=== PATIENT | female | born 1935 | race Caucasian/White ===

== ENCOUNTER → 2019-04-06 09:28 | Outpatient (BNVA) | payer MEDICARE, MEDICAID, SELFPAY | PROVIDERS: Family Provider Internal Medicine Pulmonary Disease; PCP Family Medicine; Visit Provider Anesthesiology Pain Medicine | DX: M54.5 Low back pain (principal); M79.18 Myalgia, other site; M25.551 Pain in right hip; M25.552 Pain in left hip; Z79.891 Long term (current) use of opiate analgesic | CPT/HCPCS: 20553; 99999; J1030; J3490 ==

== ENCOUNTER → 2019-04-20 12:49 | Outpatient (BNVA) | payer MEDICARE, MEDICAID, SELFPAY | PROVIDERS: Family Provider Internal Medicine Pulmonary Disease; PCP Family Medicine; Visit Provider Anesthesiology Pain Medicine | DX: G89.29 Other chronic pain (principal); M25.552 Pain in left hip; M16.10 Unilateral primary osteoarthritis, unspecified hip | CPT/HCPCS: 20610; 77003; J1030; J2001; J3490 ==

== ENCOUNTER → 2019-05-05 09:39 | Outpatient (BNVA) | payer MEDICARE, MEDICAID, SELFPAY | PROVIDERS: Family Provider Internal Medicine Pulmonary Disease; PCP Family Medicine; Visit Provider Anesthesiology Pain Medicine | DX: M25.552 Pain in left hip (principal); M54.5 Low back pain; Z79.891 Long term (current) use of opiate analgesic | CPT/HCPCS: 99214 ==

== ENCOUNTER 2019-08-12 07:14 | Emergency (ER) | payer MEDICARE, MEDICAID, SELFPAY ==
[2019-08-12] VITALS (7 sets, daily range): BP systolic 129–159; BP diastolic 46–70; PULSE 64–84; RESP 17–18; TEMP 36.7; O2SAT 95–100; BMI 39.4
--- NOTE | 2019-08-12 07:34 | W.ED.ABDPA2 ---
HPI - Abdominal Pain General: Chief Complaint: Abdominal Pain Stated Complaint: ABDOMINAL PAIN/ CRAMPING/ DIARRHEA Time Seen by Provider: 08/12/19 07:29 History of Present Illness: HPI narrative: 84-year-old female comes in complaining of abdominal pain. She denies any hematemesis coffee-ground emesis. She has not had any fevers just generalized cramping and discomfort over the last couple of days. She has had some black stools but she was recently taking some Pepto-Bismol and the black stools have been intermittent in nature. She is not had any grossly bloody stools at all. MD elicited complaint: abdominal pain Pertinent past history: gastritis and other (History of gastric ulcer) Onset (ago): day(s) (3) Pain Consistency: intermittent Location: Epigastric Severity: severe Quality: stabbing and sharp Radiation: none Migration to: no migration Exacerbating factors: eating Relieving factors: nothing Associated Symptoms: Reports anorexia, belching, bloating, change in bowel habits, change in stool character, GI cramping, dyspepsia, fever(s), melena, nausea and poor appetite; Denies coffee ground emesis, diarrhea, dysuria, hematochezia, hematuria and vomiting Review of Systems Const: Reports: fever(s) ENMT: Denies: throat pain, ear or mastoid pain, nasal discharge or nasal congestion Card: Denies: chest pain, edema, dyspnea on exertion or orthopnea Resp: Denies: dyspnea, productive cough or non-productive cough GI: Reports: nausea, bloating, GI cramping, belching, change in bowel habits, change in stool character and melena; Denies: vomiting, coffee ground emesis, diarrhea or hematochezia : Denies: dysuria or hematuria Skin/Breast: Denies: rash or pruritus PFSH ED PFSH: Medical History Chronic hip pain Chronic obstructive pulmonary disease, unspecified Hypertension Long-term current use of opiate analgesic Lumbar spondylosis Pain management contract signed SI joint arthritis Surgical History Hx of hysterectomy Hx of total knee replacement LEFT Hx of tubal ligation Family History Mother Hypertension Sister Cancer BREAST CANCER Brother Cancer Seizure disorder Other Diabetes Social History Smoking and tobacco status: former smoker Alcohol intake: never Caregiver/support person: Yes Lives independently: Yes Household members: children History of recent travel: No Physical Exam Const: COMMON NORMALS: no acute distress GENERAL APPEARANCE: cooperative and comfortable ORIENTATION/CONSCIOUSNESS: Yes awake, Yes oriented to person, Yes oriented to place and Yes oriented to time HENMT: COMMON NORMALS: normocephalic, atraumatic, hearing grossly normal bilaterally, external ears normal, EAC's normal, TM's normal bilaterally, Normal nasal mucous membranes and turbinates present, moist oral mucous membranes and oropharynx normal HEAD & SCALP: normocephalic and atraumatic NOSE: Normal nasal mucous membranes and turbinates present EXTERNAL EAR: Yes external ears normal EXTERNAL AUDITORY CANAL: EAC's normal TYMPANIC MEMBRANE: TM's normal bilaterally Eye: COMMON NORMALS: Equal, round and reactive pupils present, EOMs intact bilaterally, conjunctivae normal and no scleral icterus CONJUNCTIVA: Yes conjunctivae normal PUPIL: Yes Equal, round and reactive pupils present Neck/C-Spine: COMMON NORMALS: full ROM, no lymphadenopathy, supple and no JVD Lymph: LYMPHATIC: no lymphadenopathy noted and no lymphedema noted Resp: COMMON NORMALS: normal respiratory effort, No retractions, No use of accessory muscles and clear to auscultation bilaterally AUSCULTATION: clear to auscultation bilaterally Cardio: COMMON NORMALS: no JVD, regular rate, regular rhythm and No murmurs present (Cardio) RATE: regular rate RHYTHM: regular rhythm GI: COMMON NORMALS: Soft to palpation and No hepatosplenomegaly present AUSCULTATION: Yes Hypoactive bowel sounds present PALPATION: Yes Soft to palpation, Yes Tenderness to palpation present (GI) (Epigastric), No Guarding due to palpation present (GI) and Yes No hepatosplenomegaly present OTHER: Rectal exam done negative for blood on Hemoccult. Extremity: COMMON NORMALS: normal to inspection, capillary refill normal, no clubbing, cyanosis or edema, no calf tenderness and no pedal edema Neuro: SENSORIUM/ORIENTATION: Yes oriented to person, Yes oriented to place and Yes oriented to time Skin: COMMON NORMALS: no rashes or lesions noted GENERAL SKIN EXAM: no rashes or lesions noted Course Vital Signs: Vital signs: Vital Signs Temperature 98.0 F 08/12/19 07:16 Pulse Rate 83 08/12/19 12:57 Respiratory Rate 17 08/12/19 12:57 Blood Pressure 157/68 08/12/19 12:57 Pulse Oximetry 96 08/12/19 12:57 MDM - Abdominal Pain MDM Narrative: Medical decision making narrative: Feeling better after fluids will go ahead and start her on some Zofran PRN have her follow-up with her primary care doctor return if is any worsening problems. Lab Data: Labs: Lab Results 08/12/19 08/12/19 08/12/19 Range/Units 08:00 08:00 08:00 WBC 5.0 (4.0-10.0) 10^3/ uL RBC 4.38 (4.1-5.3) 10^6/u L Hgb 13.0 (11.5-15.3) g/dL Hct 40.5 (37.0-47.0) % MCV 92.5 (81-99) fL MCH 29.7 (28.0-34.0) pg MCHC 32.1 (30.0-36.0) g/dL RDW 13.5 (12.1-15.1) % Plt Count 304 (130-400) 10^3/c mm MPV 9.6 (7.4-10.4) fL Neut % (Auto) 73.5 % Lymph % (Auto) 13.7 % [place] % (Auto) 11.4 % Eos % (Auto) 0.8 % Baso % (Auto) 0.2 % Neut # (Auto) 3.7 (1.8-7.7) 10^3/u L Lymph # (Auto) 0.7 L (0.8-4.8) 10^3/u L [place] # (Auto) 0.6 (0.2-0.9) 10^3/u L Eos # (Auto) 0.0 (0.0-0.8) 10^3/u L Baso # (Auto) 0.0 (0.0-0.1) 10^3/u L Nucleated RBC % (a uto) 0 % Nucleated RBCs # 0.0 /100WBC Sodium 137 (136-145) mmol/L Potassium 3.7 (3.5-5.1) mmol/L Chloride 101 (98-107) mmol/L Carbon Dioxide 22 (22-29) mmol/L Anion Gap 17.7 (5-19) BUN 27 H (8-23) mg/dL Creatinine 1.1 H (0.5-0.9) mg/dL Glucose 115 (65-115) mg/dL Calculated Osmolal ity 282 L (285-295) mOsm/k g Lactate 2.1 (0.5-2.2) mmol/L Calcium 9.3 (8.5-10.5) mg/dL Total Bilirubin 0.5 (0.15-1.2) mg/dL AST 14 (0-32) U/L ALT 8 (0-33) U/L Alkaline Phosphata se 78 (35-105) IU/L Troponin T Baselin e (0-10) ng/L Troponin T 120 Min [place] (0-10) ng/L Delta Troponin T (0-10) ABS# Total Protein 6.2 L (6.6-8.7) g/dL Albumin 4.0 (3.5-5.2) g/dL Globulin 2.2 (1.3-4.6) g/dL Lipase 36 (13-60) U/L Urine Color (Yellow) Urine Appearance (CLEAR) Urine pH (5-7) Ur Specific Gravit y (1.005-1.030) Urine Protein (Negative) Urine Glucose (UA) (Normal) Urine Ketones (Negative) Urine Blood (Negative) Urine Nitrate (Negative) Urine Bilirubin (NEGATIVE) Urine Urobilinogen (Negative) mg/dL Ur Leukocyte Sarah ase (Negative) Urine RBC (0-2) /hpf Urine WBC (0-5) /hpf Ur Squamous Epith Cells (0-5) Urine Bacteria (NONE) Urine Mucus 08/12/19 08/12/19 08/12/19 Range/Units 08:00 10:28 11:30 WBC (4.0-10.0) 10^3/ uL RBC (4.1-5.3) 10^6/u L Hgb (11.5-15.3) g/dL Hct (37.0-47.0) % MCV (81-99) fL MCH (28.0-34.0) pg MCHC (30.0-36.0) g/dL RDW (12.1-15.1) % Plt Count (130-400) 10^3/c mm MPV (7.4-10.4) fL Neut % (Auto) % Lymph % (Auto) % [place] % (Auto) % Eos % (Auto) % Baso % (Auto) % Neut # (Auto) (1.8-7.7) 10^3/u L Lymph # (Auto) (0.8-4.8) 10^3/u L [place] # (Auto) (0.2-0.9) 10^3/u L Eos # (Auto) (0.0-0.8) 10^3/u L Baso # (Auto) (0.0-0.1) 10^3/u L Nucleated RBC % (a uto) % Nucleated RBCs # /100WBC Sodium (136-145) mmol/L Potassium (3.5-5.1) mmol/L Chloride (98-107) mmol/L Carbon Dioxide (22-29) mmol/L Anion Gap (5-19) BUN (8-23) mg/dL Creatinine (0.5-0.9) mg/dL Glucose (65-115) mg/dL Calculated Osmolal ity (285-295) mOsm/k g Lactate (0.5-2.2) mmol/L Calcium (8.5-10.5) mg/dL Total Bilirubin (0.15-1.2) mg/dL AST (0-32) U/L ALT (0-33) U/L Alkaline Phosphata se (35-105) IU/L Troponin T Baselin e 12 H (0-10) ng/L Troponin T 120 Min [place] 10.76 H (0-10) ng/L Delta Troponin T -1.24 L (0-10) ABS# Total Protein (6.6-8.7) g/dL Albumin (3.5-5.2) g/dL Globulin (1.3-4.6) g/dL Lipase (13-60) U/L Urine Color Yellow (Yellow) Urine Appearance Sl hazy (CLEAR) Urine pH 7.0 (5-7) Ur Specific Gravit y 1.010 (1.005-1.030) Urine Protein Trace (Negative) Urine Glucose (UA) Norm (Normal) Urine Ketones Negative (Negative) Urine Blood Trace H (Negative) Urine Nitrate Negative (Negative) Urine Bilirubin Neg (NEGATIVE) Urine Urobilinogen Norm (Negative) mg/dL Ur Leukocyte Sarah ase Negative (Negative) Urine RBC None (0-2) /hpf Urine WBC None (0-5) /hpf Ur Squamous Epith Cells 25-40 H (0-5) Urine Bacteria 1+ H (NONE) Urine Mucus Trace Discharge Plan Discharge Patient Disposition: Home, Self-Care Clinical Impression: Nausea & vomiting, Abdominal pain Condition: Stable Prescriptions: New Zofran 4 mg tablet 4 mg PO Q6H PRN (Reason: nausea and vomiting) Qty: 25 RF: 0 No Action simvastatin 40 mg tablet 40 mg PO DAILY RF: 0 lisinopril 5 mg tablet 5 mg PO DAILY RF: 0 omeprazole 40 mg capsule,delayed release(DR/EC) 40 mg PO DAILY RF: 0 tramadol 50 mg tablet 50 mg PO DAILY PRN (Reason: Pain) RF: 0 albuterol sulfate [Ventolin HFA] 90 mcg/actuation HFA aerosol inhaler 2 puff INHALATION Q4H PRN (Reason: Shortness Of Breath) RF: 0 tizanidine 2 mg tablet 2 mg PO BID MDD 2 PRN (Reason: muscle spasticity) Qty: 60 RF: 0 Tylenol Extra Strength 500 mg Tablet 1,000 mg PO PRN RF: 0 Discharge Orders: Discharge Order (Routine); Ordered 08/12/19 Ordered By: Pascual Gregg Referrals: Tu Puentes MD [Family Provider] - Shari Erazo MD [Primary Care Provider] - Discharge Diet: Usual diet Discharge Activity: Increase activity as tolerated Patient Instructions: Clear Liquid Diet (ED), Abdominal Pain (ED) Activity Restrictions/Additional Instructions: Follow-up with your primary care doctor in 2 to 3 days return if you have worsening problems clear liquid diet for the next 24 hours Discharge Date/Time: 08/12/19 12:59 Coding Level of Care Code ED General Scrap Worker for Chg Fwd Exam Comprehensive
--- NOTE | 2019-08-12 07:49 | ECG_ITS ---
[facility] Test Date: 2019-08-12 Pat Name: Brandee Lal Department: Room: Gender: Female Website Developer: : 1935 Requested By: Pascual Fox Order Number: [id number] Aviva MD: Ovi Jolley M.D. Measurements Intervals [place] Rate: 75 P: -76 MS: 147 QRS: -79 QRSD: 131 T: 60 QT: 423 QTc: 474 Interpretive Statements ECTOPIC ATRIAL RHYTHM RIGHT BUNDLE BRANCH BLOCK [120+ ms QRS DURATION, UPRIGHT V1, 40+ ms S IN I/aVL/V4/V5/V6] ANTERIOR MYOCARDIAL INFARCTION [40+ ms Q WAVE AND/OR ST/T ABNORMALITY IN V3/V4], OF INDETERMINATE AGE INFERIOR MYOCARDIAL INFARCTION [40+ ms Q WAVE AND/OR ST/T ABNORMALITY IN II/aVF], PROBABLY OLD ST DEPRESSION, CONSIDER SUBENDOCARDIAL INJURY [0.1+ mV ST DEPRESSION] No previous ECG available for comparison Electronically Signed On 08-12-2019 13:07:00 CDT by Ovi Jolley M.D. [id number]
--- NOTE | 2019-08-12 07:50 | CT_ITS ---
WS: [id number] CT abdomen pelvis w con* [id number] REASON FOR EXAM: abd pain IV CONTRAST ADMINISTERED: Omnipaque 300, 95 mL. TOTAL EXAM DLP: 1847.[address] scans at [facility] use at least one of these dose optimization techniques: automat ed exposure control; mA and/or kV adjustment per patient size (includes targeted exams where dose is matched to clinical indication); or iterative reconstruction. FINDINGS: Lower lungs and mediastinum are normal. The liver showed normal appearance no infiltrating changes. The gallbladder was normal no stones are seen. The pancreas head, body, tail were normal. The spleen and stomach were normal. The adrenal glands were both normal. Both kidneys were normal no hydronephrosis a small cyst is seen in the left lower kidney measured 7.5 3 mm. No stones in either kidney are seen in the ureters were normal. The ascending colon show no gross abnormalities. Appendix was normal. The small bowel patterns show no thickened cortes. The descending colon show no extensive diverticular disease there is isolated diverticular disease in the sigmoid colon area. No diverticulitis is seen. The urinary bladder was normal. The uterus is not seen. There were no hernias noted in either the inguinal area are umbilical area. There is heavy arteriosclerotic changes of the vasculature. There was no free air in the diaphragmatic area. CT/CT abdomen pelvis w con* [id number] IMPRESSION: Localized diverticulosis in the pelvis.
[2019-08-12] MEDS: morphine 4 mg/mL SDV 1 mL IVP (08:17)
[2019-08-12] MEDS: ondansetron 2 mg/ML SDV 2 mL 4 MG IVP (08:17)
[2019-08-12] MEDS: pantoprazole 40 mg SDV IVP (08:18)
[2019-08-12] MEDS: sodium chloride 0.9% 1,000 ML 999 ML IV (08:18)
[2019-08-12] MEDS: iodixanol 320 mg/mL 100mL Btl IV (08:19)
[2019-08-12 08:24] LABS: Basophils % 0.2 %; Eosinophils % 0.8 %; Hematocrit 40.5 % (37.0-47.0); Lymphocytes # 0.7 10^3/uL (0.8-4.8); Lymphocytes % 13.7 %; Mean Corpuscular HGB Conc 32.1 g/dL (30.0-36.0); Mean Corpuscular Hemoglobin 29.7 pg (28.0-34.0); Mean Corpuscular Volume 92.5 fL (81-99); Mean Platelet Volume 9.6 fL (7.4-10.4); Monocytes # 0.6 10^3/uL (0.2-0.9); Monocytes % 11.4 %; Neutrophils # 3.7 10^3/uL (1.8-7.7); Neutrophils % 73.5 %; Nucleated Red Blood Cells % 0 %; Platelet Count 304 10^3/cmm (130-400); Red Blood Count 4.38 10^6/uL (4.1-5.3); Red Cell Distribution Width 13.5 % (12.1-15.1)
[2019-08-12 08:37] LABS: Lactate (Lactic Acid level) 2.1 mmol/L (0.5-2.2)
[2019-08-12 08:39] LABS: Alanine Aminotransferase 8 U/L (0-33); Alkaline Phosphatase 78 IU/L (35-105); Anion Gap 17.7 (5-19); Aspartate Amino Transferase 14 U/L (0-32); Blood Urea Nitrogen 27 mg/dL (8-23); Calcium 9.3 mg/dL (8.5-10.5); Carbon Dioxide 22 mmol/L (22-29); Chloride 101 mmol/L (98-107); Globulin 2.2 g/dL (1.3-4.6); Glucose 115 mg/dL (65-115); Lipase 36 U/L (13-60); Osmolality Calculated 282 mOsm/kg (285-295); Potassium 3.7 mmol/L (3.5-5.1); Sodium 137 mmol/L (136-145); Total Bilirubin 0.5 mg/dL (0.15-1.2); Total Protein 6.2 g/dL (6.6-8.7); Troponin(5th) Baseline 12 ng/L (0-10)
--- NOTE | 2019-08-12 09:49 | ECG_ITS ---
[facility] ED Test Date: 2019-08-12 Pat Name: Brandee Lal Department: Room: Gender: Female Editing Clerk: : 1935 Requested By: Pascual Fox Order Number: [id number] Aviva MD: Ovi Jolley M.D. Measurements Intervals [place] Rate: 69 P: -14 [place]: 133 QRS: -89 QRSD: 164 T: 18 QT: 461 QTc: 494 Interpretive Statements SINUS RHYTHM RIGHT BUNDLE BRANCH BLOCK [120+ ms QRS DURATION, UPRIGHT V1, 40+ ms S IN I/aVL/V4/V5/V6] LEFT ANTERIOR FASCICULAR BLOCK [QRS AXIS <= -45, QR IN I, RS IN II] POSSIBLE ANTERIOR MYOCARDIAL INFARCTION [30 ms Q WAVE IN V3/V4, OR R < 0.2 mV IN V4], OF INDETERMINATE AGE Compared to ECG 08/12/2019 08:28:40 Left anterior fascicular block now present Ectopic atrial rhythm no longer present ST (T wave) deviation no longer present Myocardial infarct finding still present Electronically Signed On 08-12-2019 13:08:19 CDT by Ovi Jolley M.D. [id number]
[2019-08-12 10:57] LABS: Troponin 5 2HR 10.76 ng/L (0-10)
[2019-08-12 10:58] LABS: Troponin 5 2HR Delta -1.24 ABS# (0-10)
[2019-08-12 12:05] LABS: Add Urine Culture? No; Add Urine Microscopic? YES; Bacteria Urine 1+; Bilirubin Urine Neg (NEGATIVE); Blood Urine Trace (Negative); Glucose Urine UA Norm (Normal); Ketones Urine Negative (Negative); Leukocyte Esterase Urine Negative (Negative); Mucus Urine TRACE; Nitrate Urine Negative (Negative); Protein Urine Trace (Negative); Squamous Epithelial Cell Urine 25-40 (0-5); Urine Appearance SL Hazy (CLEAR); Urine Color Yellow (Yellow); Urobilinogen Urine Norm (Negative)
== END 2019-08-12 12:59 | disposition home or self-care (01) ==
PROVIDERS: Emergency Provider Family Medicine; Family Provider Internal Medicine Pulmonary Disease; PCP Family Medicine
DX: R11.2 Nausea with vomiting, unspecified (principal); R10.9 Unspecified abdominal pain; J44.9 Chronic obstructive pulmonary disease, unspecified; I10 Essential (primary) hypertension; Z87.891 Personal history of nicotine dependence
CPT/HCPCS: 12345; 36415; 74177; 80053; 81001; 83605; 83690; 84484; 85025; 87040; 87205; 93005; 96361; 96374; 96375; 99283; 99284; C9113; J2270; J2405; J7030; Q9967

== ENCOUNTER 2021-02-12 08:44 | Emergency (ER) | payer MEDICARE, MEDICAID, SELFPAY ==
[2021-02-12 08:55] VITALS: BP 188/73; PULSE 80; RESP 20; TEMP 37.1; O2SAT 90; BMI 41.9
--- NOTE | 2021-02-12 09:13 | ECG_ITS ---
[facility] Test Date: 2021-02-12 Pat Name: Brandee Lla Department: Room: Gender: Female Spanish Medical Interpreter: : 1935 Requested By: Pascual Fox Order Number: [id number] Aviva MD: Bertha Gonzalez M.D. Measurements Intervals [place] Rate: 73 P: 55 [place]: 162 QRS: -76 QRSD: 161 T: 32 QT: 423 QTc: 468 Interpretive Statements SINUS RHYTHM WITH OCCASIONAL VENTRICULAR PREMATURE COMPLEXES POSSIBLE LEFT ATRIAL ENLARGEMENT [-0.1mV P-WAVE IN V1/V2] RIGHT BUNDLE BRANCH BLOCK [120+ ms QRS DURATION, UPRIGHT V1, 40+ ms S IN I/aVL/V4/V5/V6] LEFT ANTERIOR FASCICULAR BLOCK [QRS AXIS <= -45, QR IN I, RS IN II] POSSIBLE ANTERIOR MYOCARDIAL INFARCTION , OF INDETERMINATE AGE [30 ms Q WAVE IN V3/V4, OR R < 0.2 mV IN V4] Compared to ECG 08/12/2019 10:10:17 Ventricular premature complex(es) now present Myocardial infarct finding still present Electronically Signed On 02-12-2021 22:08:37 ELECTRICITY TRADING ANALYST by Bertha Gonzalez M.D. [email or web address] [email or web address]/store/NU/[id number] cb
--- NOTE | 2021-02-12 09:13 | XR_ITS ---
WS: [id number] Exam: XR chest 1V portable [id number] Date/Time of Exam: 02/12/2021 9:15 AM Reason For Exam: dyspnea/cough No priors. There is cardiac enlargement. The lungs are clear. No pneumothorax is seen. Elevated elevated left di aphragm. Eventration of the right diaphragm. The mediastinum is not widened. Moderately advanced DJD of both shoulders. XR/XR chest 1V portable [id number] IMPRESSION: 1. Mild cardiac enlargement. 2. No acute infiltrate identified. Other nonemergent findings.
--- NOTE | 2021-02-12 09:14 | W.ED.SOB ---
HPI - SOB/Dyspnea General: Chief Complaint: Shortness of Breath/Dyspnea Stated Complaint: COPD, COUGHING, SORE THROAT, DIFF BREATHING Time Seen by Provider: 02/12/21 08:50 History of Present Illness: HPI Narrative: 85-year-old female presents emergency room complaining of cough shortness of breath and sore throat that began 2 to 3 days ago progressively worsening. She denies any diarrhea. She not had any anosmia. Denies fever. Has had moderately increasing productive cough or purulent sputum. She has felt more short of breath particularly with exertion. She has a known history of COPD and is not chronically on any oxygen. MD elicited complaint: shortness of breath and cough Pertinent past history: COPD Onset (ago): day(s) (3) Timing: constant Severity: mild Exacerbating factors: exertion and coughing Relieving factors: rest Known history of: COPD Associated symptoms: Deny abdominal pain, chest congestion, chest pain, cough, diaphoresis, dizziness, extremity pain, fever(s), hemoptysis, lightheadedness, myalgias, nausea, orthopnea, palpitations, paresthesias, polydipsia, polyuria, rash, sense of impending doom, syncope or vomiting Treatment prior to arrival: none Review of Systems Const: Denies: fever(s) or diaphoresis ENMT: Denies: throat pain, ear or mastoid pain, nasal discharge or nasal congestion Card: Denies: chest pain, palpitations, lightheadedness, syncope or orthopnea Resp: Denies: hemoptysis or chest congestion GI: Denies: abdominal pain, nausea or vomiting : Denies: flank pain, difficulty voiding, dysuria, urinary frequency or urinary urgency Musc: Denies: extremity pain Skin/Breast: Denies: rash or pruritus Neuro: Denies: dizziness Endo: Denies: polyuria or polydipsia PFSH ED PFSH: Medical History (Updated 02/12/21 @ 12:57 by Pascual Gregg DO) Chronic hip pain Chronic obstructive pulmonary disease, unspecified Hypertension Long-term current use of opiate analgesic Lumbar spondylosis Pain management contract signed SI joint arthritis Surgical History Hx of hysterectomy Hx of total knee replacement LEFT Hx of tubal ligation Family History Mother Hypertension Sister Cancer BREAST CANCER Brother Cancer Seizure disorder Other Diabetes Social History Smoking and tobacco status: former smoker Alcohol intake: never Caregiver/support person: Yes Lives independently: Yes Household members: children History of recent travel: No Physical Exam Const: GENERAL APPEARANCE: cooperative and comfortable ORIENTATION/CONSCIOUSNESS: Yes awake, Yes oriented to person, Yes oriented to place and Yes oriented to time HENMT: COMMON NORMALS: normocephalic, atraumatic and hearing grossly normal bilaterally HEAD & SCALP: normocephalic and atraumatic Neck/C-Spine: COMMON NORMALS: no JVD Lymph: LYMPHATIC: no lymphadenopathy noted and no lymphedema noted Resp: COMMON NORMALS: normal respiratory effort AUSCULTATION: wheezes expiratory wheezes (Mild) Cardio: COMMON NORMALS: no JVD, regular rate, regular rhythm and No murmurs present (Cardio) RATE: regular rate RHYTHM: regular rhythm GI: COMMON NORMALS: Soft to palpation and No hepatosplenomegaly present AUSCULTATION: Yes normoactive bowel sounds PALPATION: Yes Soft to palpation, No Tenderness to palpation present (GI), No Guarding due to palpation present (GI) and Yes No hepatosplenomegaly present Extremity: COMMON NORMALS: normal to inspection, capillary refill normal, no clubbing, cyanosis or edema, no calf tenderness and no pedal edema Neuro: SENSORIUM/ORIENTATION: Yes oriented to person, Yes oriented to place and Yes oriented to time Skin: COMMON NORMALS: no rashes or lesions noted GENERAL SKIN EXAM: no rashes or lesions noted Course Vital Signs: Vital signs: Vital Signs Temperature 98.7 F 02/12/21 09:19 Pulse Rate 74 02/12/21 09:19 Respiratory Rate 18 02/12/21 09:19 Blood Pressure 188/76 02/12/21 09:19 Pulse Oximetry 98 02/12/21 09:19 MDM - SOB/Dyspnea Lab Data: Labs: Lab Results 02/12/21 02/12/21 02/12/21 09:02 09:02 09:05 WBC 11.0 10^3/uL H 10 ^3/uL (4.0-10.0) RBC 4.82 10^6/uL 10^6 /uL (4.1-5.3) Hgb 13.5 g/dL g/dL (11.5-15.3) Hct 41.7 % % (37.0-47.0) MCV 86.5 fl fl (81-99) MCH 28.0 pg pg (28.0-34.0) MCHC 32.4 g/dL g/dL (30.0-36.0) RDW 13.6 % % (12.1-15.1) Plt Count 294 10^3/cmm 10^3 /cmm (130-400) MPV 9.7 fL fL (7.4-10.4) Neut % (Auto) 89.9 % % Lymph % (Auto) 4.7 % % [place] % (Auto) 4.4 % % Eos % (Auto) 0.2 % % Baso % (Auto) 0.3 % % Neut # (Auto) 9.88 10^3/uL H 10 ^3/uL (1.8-7.7) Lymph # (Auto) 0.5 10^3/uL L 10^ 3/uL (0.8-4.8) [place] # (Auto) 0.5 10^3/uL 10^3/ uL (0.2-0.9) Eos # (Auto) 0.0 10^3/uL 10^3/ uL (0.0-0.8) Baso # (Auto) 0.0 10^3/uL 10^3/ uL (0.0-0.1) Nucleated RBC % (a uto) 0 % % Nucleated RBCs # 0.0 /100WBC /100W BC Specimen Type Sample Site ABG pH ABG pCO2 ABG pO2 ABG HCO3 ABG O2 Saturation ABG Base Excess [place] Test A-a O2 Gradient Hematocrit Hgb O2 Saturation Carboxyhemoglobin Methemoglobin Total Hemoglobin Ionized Calcium O2 Delivery Device O2 Liters/Min Cable Installer ID Sodium 135 mmol/L L mmol /L (136-145) Potassium 4.9 mmol/L mmol/L (3.5-5.1) Chloride 99 mmol/L mmol/L (98-107) Carbon Dioxide 22 mmol/L mmol/L (22-29) Anion Gap 18.9 (5-19) BUN 11 mg/dL mg/dL (8-23) Creatinine 0.9 mg/dL mg/dL (0.5-0.9) GFR Calculation Not Reportable Glucose 158 mg/dL H mg/dL (65-115) Calculated Osmolal ity 283 mOsm/kg L mOs m/kg (285-295) Calcium 8.8 mg/dL mg/dL (8.5-10.5) Total Bilirubin 0.5 mg/dL mg/dL (0.15-1.2) AST 13 U/L U/L (0-32) ALT 7 U/L U/L (0-33) Alkaline Phosphata se 87 IU/L IU/L (35-105) Total Protein 7.4 g/dL g/dL (6.6-8.7) Albumin 3.9 g/dL g/dL (3.5-5.2) Globulin 3.5 g/dL g/dL (1.3-4.6) Coronavirus 229E ( PCR) Not detected (NOT DETECT) Human Metapneumovi r PCR Entero/Rhino (PCR) SARS-CoV-2 (PCR) Not detected (NOT DETECT) 02/12/21 02/12/21 09:52 12:09 WBC RBC Hgb Hct MCV MCH MCHC RDW Plt Count MPV Neut % (Auto) Lymph % (Auto) [place] % (Auto) Eos % (Auto) Baso % (Auto) Neut # (Auto) Lymph # (Auto) [place] # (Auto) Eos # (Auto) Baso # (Auto) Nucleated RBC % (a uto) Nucleated RBCs # Specimen Type Arterial Sample Site Radial, right ABG pH 7.46 H (7.35-7.45) ABG pCO2 36.5 mmHg mmHg (35-45) ABG pO2 53.1 mmHg L mmHg (80.0-100.0) ABG HCO3 25.7 mmol/L mmol/ L (22-26) ABG O2 Saturation 90.7 ABG Base Excess 2.0 mmol/L mmol/L (-2.0-2.0) [place] Test Pos A-a O2 Gradient 6.7 mmHg mmHg (5-10) Hematocrit 39.0 % % (37-47) Hgb O2 Saturation 88.9 % L % (95-100) Carboxyhemoglobin 1.0 %THgb %THgb (0.4-20.1) Methemoglobin 1.0 % % (0.4-1.5) Total Hemoglobin 12.7 g/dL g/dL (12-16) Ionized Calcium 1.2 mmol/L mmol/L (1.1-1.4) O2 Delivery Device [place]c O2 Liters/Min 2.0 % % Cable Installer ID Hensa Sodium 136.0 mmol/L mmol /L (131-143) Potassium 4.3 mmol/L mmol/L (3.5-5.0) Chloride Carbon Dioxide Anion Gap BUN Creatinine GFR Calculation Glucose 154.0 mg/dL H mg/ dL (70-115) Calculated Osmolal ity Calcium Total Bilirubin AST ALT Alkaline Phosphata se Total Protein Albumin Globulin Coronavirus 229E ( PCR) Human Metapneumovi r PCR Detected A (NOT DETECT) Entero/Rhino (PCR) Not detected (NOT DETECT) SARS-CoV-2 (PCR) Discharge Plan Discharge Patient Disposition: Home Clinical Impression: Acute exacerbation of chronic obstructive airways disease Condition: Stable Prescriptions: New doxycycline hyclate 100 mg capsule 100 mg PO BID 10 Days Qty: 20 RF: 0 methylprednisolone [Medrol ([place])] 4 mg tablets,dose pack See Rx Instructions .ROUTE .COMPLEX Qty: 21 RF: 0 No Action simvastatin 40 mg tablet 40 mg PO DAILY RF: 0 lisinopril 5 mg tablet 5 mg PO QAM RF: 0 omeprazole 40 mg capsule,delayed release(DR/EC) 40 mg PO QAM RF: 0 albuterol sulfate [Ventolin HFA] 90 mcg/actuation HFA aerosol inhaler 2 puff INHALATION Q4H PRN (Reason: Shortness Of Breath) RF: 0 escitalopram oxalate 20 mg tablet 20 mg PO BEDTIME RF: 0 acetaminophen [Tylenol Extra Strength] 500 mg Tablet 1,000 mg PO Q4H PRN (Reason: Pain) RF: 0 Discharge Orders: Discharge ED (Routine); Ordered 02/12/21 Ordered By: Pascual Gregg Referrals: Shari Erazo MD [Primary Care Provider] - Patient Instructions: Opioid Safety Coding Level of Care Code ED Street Supervisor for Chg Fwd Exam Comprehensive
[2021-02-12 09:19] VITALS: BP 188/76; PULSE 72; PULSE 74; RESP 18; TEMP 37.1; O2SAT 98
[2021-02-12 09:27] LABS: Basophils % 0.3 %; Eosinophils % 0.2 %; Hematocrit 41.7 % (37.0-47.0); Hemoglobin 13.5 g/dL (11.5-15.3); Lymphocytes # 0.5 10^3/uL (0.8-4.8); Lymphocytes % 4.7 %; Mean Corpuscular HGB Conc 32.4 g/dL (30.0-36.0); Mean Corpuscular Volume 86.5 fl (81-99); Mean Platelet Volume 9.7 fL (7.4-10.4); Monocytes # 0.5 10^3/uL (0.2-0.9); Monocytes % 4.4 %; Neutrophils # 9.88 10^3/uL (1.8-7.7); Neutrophils % 89.9 %; Nucleated Red Blood Cells % 0 %; Platelet Count 294 10^3/cmm (130-400); Red Blood Count 4.82 10^6/uL (4.1-5.3); Red Cell Distribution Width 13.6 % (12.1-15.1)
[2021-02-12 09:34] LABS: Alanine Aminotransferase 7 U/L (0-33); Albumin Level 3.9 g/dL (3.5-5.2); Alkaline Phosphatase 87 IU/L (35-105); Aspartate Amino Transferase 13 U/L (0-32); Blood Urea Nitrogen 11 mg/dL (8-23); Calcium 8.8 mg/dL (8.5-10.5); Carbon Dioxide 22 mmol/L (22-29); Chloride 99 mmol/L (98-107); Globulin 3.5 g/dL (1.3-4.6); Glucose 158 mg/dL (65-115); Osmolality Calculated 283 mOsm/kg (285-295); Sodium 135 mmol/L (136-145); Total Bilirubin 0.5 mg/dL (0.15-1.2); Total Protein 7.4 g/dL (6.6-8.7)
[2021-02-12 09:37] LABS: Anion Gap 18.9 (5-19); Potassium 4.9 mmol/L (3.5-5.1)
[2021-02-12 10:07] LABS: ABG PCO2 36.5 mmHg (35-45); ABG PH Result 7.46 (7.35-7.45); Alveolar-Arterial Oxygen Gradi 6.7 mmHg (5-10); Blood Gas Allen Test Pos; Blood Gas Sample Site Radial, right; Blood Gas Sample Type Arterial; HCO3 ABG 25.7 mmol/L (22-26); HGB O2 Sat 88.9 % (95-100); Ionized Calcium Level - ABG 1.2 mmol/L (1.1-1.4); Oxygen Device NC; Oxygen Saturation ABG 90.7; PO2 ABG 53.1 mmHg (80.0-100.0); Potassium Level - ABG 4.3 mmol/L (3.5-5.0); Total Hemoglobin 12.7 g/dL (12-16)
[2021-02-12 12:02] LABS: Human Metapneumovirus Detected (NOT DETECT); Human Rhinovirus/Enterovirus Not Detected (NOT DETECT); Influenza A Not Detected (NOT DETECT); Influenza A H1 Not Detected (NOT DETECT); Influenza A H1-2009 Not Detected (NOT DETECT); Influenza A H3 Not Detected (NOT DETECT); Influenza B Not Detected (NOT DETECT); Parainfluenza Virus Type 1 Not Detected (NOT DETECT); Parainfluenza Virus Type 2 Not Detected (NOT DETECT); Parainfluenza Virus Type 3 Not Detected (NOT DETECT)
[2021-02-12 12:03] LABS: Adenovirus Not Detected (NOT DETECT); Chlamydia Pneumoniae Not Detected (NOT DETECT); Coronavirus 229E,HKU1,NL63,OC4 Not Detected (NOT DETECT); Mycoplasma Pneumoniae Not Detected (NOT DETECT); Parainfluenza Virus Type 4 Not Detected (NOT DETECT); Respiratory Syncytial Virus A Not Detected (NOT DETECT); Respiratory Syncytial Virus B Not Detected (NOT DETECT); SARS-COV-2 Not Detected (NOT DETECT)
[2021-02-12 12:10] LABS: Human Metapneumovirus Detected (NOT DETECT); Human Rhinovirus/Enterovirus Not Detected (NOT DETECT); Results from Genmark
[2021-02-12 13:43] VITALS: O2SAT 91
== END 2021-02-12 15:33 | disposition home or self-care (01) ==
PROVIDERS: Emergency Provider Family Medicine; PCP Family Medicine
DX: J44.1 Chronic obstructive pulmonary disease with (acute) exacerbation (principal); Z87.891 Personal history of nicotine dependence; I10 Essential (primary) hypertension
CPT/HCPCS: 36600; 71045; 80051; 80053; 82330; 82805; 85025; 87635; 87801; 93005; 99284; 99291

== ENCOUNTER 2021-04-21 14:02 | Emergency (ER) | payer MEDICARE, MEDICAID, SELFPAY ==
[2021-04-21 14:22] VITALS: BP 107/71; PULSE 80; RESP 15; TEMP 35.8; O2SAT 95; BMI 37.5
[2021-04-21 15:38] VITALS: BP 171/126; PULSE 70; RESP 20; O2SAT 95
--- NOTE | 2021-04-21 15:42 | W.ED.ABDPA2 ---
HPI - Abdominal Pain General: Chief Complaint: Abdominal Pain Stated Complaint: Right ABD pain Time Seen by Provider: 04/21/21 15:28 Source: patient Mode of arrival: ambulatory Limitations: no limitations History of Present Illness: Patient with complaints of right upper quadrant abdominal pain that started 2 days ago. Patient also complaining of rash to the right flank and right anterior abdomen since 2 days ago as well. She states the abdominal pain is above the rash. She denies any fever chills or sweats. She denies any nausea vomiting or diarrhea. She denies any blood in her stool. Possible history includes chronic low back pain, essential hypertension. She states she is allergic to codeine aspirin Valium and naproxen. Past surgical history includes total abdominal hysterectomy. She states she had knee surgery before. She denies having appendectomy or cholecystectomy before. She states she quit smoking about 30 years ago. She denies alcohol use. Onset (ago): day(s) (2) Quality: sharp Relieving factors: nothing Associated Symptoms: Denies anorexia, belching, bloating, change in bowel habits, change in stool character, chills, coffee ground emesis, constipation, GI cramping, diarrhea, dysuria, fever(s), hematochezia, hematuria, hematemesis, nausea and vomiting Review of Systems Const: Denies: fever(s) or chills Eyes: Denies: change in vision ENMT: Denies: throat pain Card: Denies: chest pain or palpitations Resp: Denies: dyspnea or wheezing GI: Reports: abdominal pain; Denies: nausea, vomiting, hematemesis, coffee ground emesis, diarrhea, constipation, bloating, GI cramping, belching, change in bowel habits, change in stool character or hematochezia : Reports: flank pain; Denies: difficulty voiding, dysuria or hematuria Musc: Denies: neck pain or back pain Skin/Breast: Reports: rash and erythema; Denies: pruritus Neuro: Denies: headache(s) or numbness in extremities Psych: Denies: anxiety Vinicio/Lymph: Denies: enlarged lymph nodes [facility] PFSH: Medical History (Updated 04/21/21 @ 17:14 by Jeffrey Harley MD) Chronic hip pain Chronic obstructive pulmonary disease, unspecified Hypertension Long-term current use of opiate analgesic Lumbar spondylosis Pain management contract signed SI joint arthritis Surgical History Hx of hysterectomy Hx of total knee replacement LEFT Hx of tubal ligation Family History Mother Hypertension Sister Cancer BREAST CANCER Brother Cancer Seizure disorder Other Diabetes Social History Smoking and tobacco status: former smoker Alcohol intake: never Caregiver/support person: Yes Lives independently: Yes Household members: children History of recent travel: No Physical Exam Const: COMMON NORMALS: no acute distress, patient oriented x3, no limitations and well nourished GENERAL APPEARANCE: cooperative HENMT: COMMON NORMALS: normocephalic and atraumatic HEAD & SCALP: normocephalic and atraumatic FACE & SINUS: normal facial exam Eye: COMMON NORMALS: EOMs intact bilaterally Neck/C-Spine: COMMON NORMALS: full ROM, no lymphadenopathy, supple and no meningeal signs GENERAL: Yes normal visual inspection Lymph: LYMPHATIC: no lymphadenopathy noted Chest: COMMONS NORMALS: normal inspection of the chest and normal palpation of entire chest wall CHEST: No Ecchymosis present and No rash Resp: COMMON NORMALS: normal respiratory effort, No retractions and clear to auscultation bilaterally EFFORT & INSPECTION: No respiratory distress AUSCULTATION: clear to auscultation bilaterally Cardio: COMMON NORMALS: regular rate, regular rhythm and Peripheral pulses 2+ throughout JUGULAR VENOUS DISTENTION: no JVD RATE: regular rate RHYTHM: regular rhythm PERIPHERAL PULSES: Peripheral pulses 2+ throughout GI: OTHER: Morbid obesity, moderate right upper quadrant abdominal pain not associated with the rash. Mild flank pain. : OTHER: Mild right flank pain Extremity: COMMON NORMALS: normal to inspection, full ROM and capillary refill normal Neuro: COMMON NORMALS: patient oriented x3, CN's II-XII intact bilaterally, no focal motor deficits and no sensory deficits noted MENINGEAL SIGNS: Yes no meningeal signs Psych: COMMON NORMALS: mental status grossly normal and Normal thought process present THOUGHT PROCESS: Normal thought process present Skin: COMMON NORMALS: no wounds OTHER: Vesicular rash extending from right anterior abdomen to right flank consistent with herpes zoster. Course Vital Signs: Vital signs: Vital Signs Temperature 96.5 F L 04/21/21 14:22 Pulse Rate 70 04/21/21 15:38 Respiratory Rate 20 H 04/21/21 15:38 Blood Pressure 171/126 04/21/21 15:38 Pulse Oximetry 95 04/21/21 15:38 MDM - Abdominal Pain Medical Decision Making Flank pain, right upper quad abdominal pain, herpes zoster Lab Data I reviewed the patient's lab results. Urine was a clean-catch specimen appears to be contaminated. : 04/21/21 15:50 04/21/21 15:50 Labs/Radiology: Radiology Impressions Abdomen/Pelvis CT 04/21/21 16:59 IMPRESSION: 1. No acute abnormality identified in the abdomen or pelvis. 2. Mild tree-in-bud opacities in the right lower lobe and bronchiectasis in the right lung base. This finding likely indicates chronic/recurrent endobronchial infection. Consider atypical etiologies such as mycobacterium avium complex. COMMENTS: Consistent with the [employer]'s Incidental Findings Committee white paper (J Am Britt Radiol 2018): Any incidental renal lesion less than 1 cm or classified as too small to characterize, or any incidental cystic renal lesion characterized as simple-appearing, is likely benign. No follow-up imaging is recommended for these lesions per consensus recommendations based on imaging criteria. Laboratory Results WBC 4.2 10^3/uL (4.0-10.0) 04/21/21 15:50 RBC 4.67 10^6/uL (4.1-5.3) 04/21/21 15:50 Hgb 12.5 g/dL (11.5-15.3) 04/21/21 15:50 Hct 41.0 % (37.0-47.0) 04/21/21 15:50 MCV 87.8 fl (81-99) 04/21/21 15:50 MCH 26.8 pg (28.0-34.0) L 04/21/21 15:50 MCHC 30.5 g/dL (30.0-36.0) 04/21/21 15:50 RDW 14.3 % (12.1-15.1) 04/21/21 15:50 Plt Count 208 10^3/cmm (130-400) 04/21/21 15:50 MPV 10.6 fL (7.4-10.4) H 04/21/21 15:50 Neut % (Auto) 77.6 % 04/21/21 15:50 Lymph % (Auto) 10.8 % 04/21/21 15:50 Marion % (Auto) 10.4 % 04/21/21 15:50 Eos % (Auto) 0.0 % 04/21/21 15:50 Baso % (Auto) 0.5 % 04/21/21 15:50 Neut # (Auto) 3.22 10^3/uL (1.8-7.7) 04/21/21 15:50 Lymph # (Auto) 0.5 10^3/uL (0.8-4.8) L 04/21/21 15:50 Marion # (Auto) 0.4 10^3/uL (0.2-0.9) 04/21/21 15:50 Eos # (Auto) 0.0 10^3/uL (0.0-0.8) 04/21/21 15:50 Baso # (Auto) 0.0 10^3/uL (0.0-0.1) 04/21/21 15:50 Nucleated RBC % (auto) 0 % 04/21/21 15:50 Nucleated RBCs # 0.0 /100WBC 04/21/21 15:50 Sodium 136 mmol/L (136-145) 04/21/21 15:50 Potassium 3.7 mmol/L (3.5-5.1) 04/21/21 15:50 Chloride 100 mmol/L (98-107) 04/21/21 15:50 Carbon Dioxide 25 mmol/L (22-29) 04/21/21 15:50 Anion Gap 14.7 (5-19) 04/21/21 15:50 BUN 20 mg/dL (8-23) 04/21/21 15:50 Creatinine 0.9 mg/dL (0.5-0.9) 04/21/21 15:50 GFR Calculation Not Reportable 04/21/21 15:50 Glucose 106 mg/dL (65-115) 04/21/21 15:50 Calculated Osmolality 285 mOsm/kg (285-295) 04/21/21 15:50 Calcium 9.7 mg/dL (8.5-10.5) 04/21/21 15:50 Total Bilirubin 0.4 mg/dL (0.15-1.2) 04/21/21 15:50 AST 13 U/L (0-32) 04/21/21 15:50 ALT 7 U/L (0-33) 04/21/21 15:50 Alkaline Phosphatase 84 IU/L (35-105) 04/21/21 15:50 Total Protein 6.8 g/dL (6.6-8.7) 04/21/21 15:50 Albumin 4.0 g/dL (3.5-5.2) 04/21/21 15:50 Globulin 2.8 g/dL (1.3-4.6) 04/21/21 15:50 Lipase 25 U/L (13-60) 04/21/21 15:50 Urine Color Dark yellow (Yellow) 04/21/21 16:50 Urine Appearance Hazy (CLEAR) A 04/21/21 16:50 Urine pH 5 (5-7) 04/21/21 16:50 Ur Specific Buckner 1.020 (1.005-1.030) 04/21/21 16:50 Urine Protein 1+ (Negative) H 04/21/21 16:50 Urine Glucose (UA) Norm (Normal) 04/21/21 16:50 Urine Ketones Negative (Negative) 04/21/21 16:50 Urine Blood 2+ (Negative) H 04/21/21 16:50 Urine Nitrate Negative (Negative) 04/21/21 16:50 Urine Bilirubin 1+ (Negative) H 04/21/21 16:50 Urine Urobilinogen 8 mg/dL (Negative) H 04/21/21 16:50 Ur Leukocyte Esterase Trace (Negative) H 04/21/21 16:50 Urine RBC 5-10 /hpf (0-2) H 04/21/21 16:50 Urine WBC 10-15 /hpf (0-5) H 04/21/21 16:50 Ur Squamous Epith Cells 15-25 /hpf (0-5) H 04/21/21 16:50 Amorphous Sediment Not Reportable 04/21/21 16:50 Urine Bacteria 1+ /hpf (NONE) H 04/21/21 16:[address] Abd/Pel: Radiologist's impression: PROCEDURE INFORMATION: Exam: CT Abdomen And Pelvis Without Contrast Exam date and time: 04/21/2021 4:59 PM Age: 85 years old Clinical indication: Abdominal pain; Localized; Right lower quadrant (rlq); Prior surgery; Surgery date: 6+ months; Surgery type: Hernia, hyst; Patient HX: C/O R flank/rlq pain; Additional info: Flank pain; Right, also look at appendix TECHNIQUE: Imaging protocol: Computed tomography of the abdomen and pelvis without contrast. Radiation optimization: All CT scans at this facility use at least one of these dose optimization techniques: automated exposure control; mA and/or kV adjustment per patient size (includes targeted exams where dose is matched to clinical indication); or iterative reconstruction. COMPARISON: CT abdomen pelvis w con* [id number] 08/12/2019 8:09 AM RADIATION DOSE METRICS: Total DLP (mGy-cm): 1935.19 FINDINGS: Lungs: Bronchiectasis in the right lower and middle lobes. Fibrosis in the right middle lobe. Mild tree-in-bud opacities in the right lower lobe. Liver: Normal. No mass. Gallbladder and bile ducts: Normal. No calcified stones. No ductal dilation. Pancreas: Normal. No ductal dilation. Spleen: Normal. No splenomegaly. Adrenal glands: Normal. No mass. Kidneys and ureters: Right renal cyst, Hounsfield units less than 20. No follow-up imaging is recommended. The kidneys are otherwise unremarkable. No calculus or hydronephrosis. Mild perinephric stranding is most likely chronic. Stomach and bowel: Large hiatal/gastric hernia. Mild diverticulosis of the sigmoid colon. No diverticulitis. The stomach is decompressed. The small bowel is unremarkable. No wall thickening or obstruction. Appendix: The appendix is not visualized, and may be surgically absent. No secondary signs of appendicitis. Intraperitoneal space: Unremarkable. No free air. No significant fluid collection. Vasculature: Arterial calcifications. No aneurysm. Lymph nodes: Unremarkable. No enlarged lymph nodes. Urinary bladder: Unremarkable as visualized. Reproductive: The uterus and ovaries are absent. Bones/joints: Degenerative changes of the spine and hips. No fracture. Soft tissues: Unremarkable. CT/CT kidney stone [id number] IMPRESSION: 1. No acute abnormality identified in the abdomen or pelvis. 2. Mild tree-in-bud opacities in the right lower lobe and bronchiectasis in the right lung base.? This finding likely indicates chronic/recurrent endobronchial infection.? Consider atypical etiologies such as mycobacterium avium complex. ? COMMENTS: Consistent with the [employer]'s Incidental Findings Committee white paper (J Am Britt Radiol 2018): Any incidental renal lesion less than 1 cm or classified as too small to characterize, or any incidental cystic renal lesion characterized as simple-appearing, is likely benign. No follow-up imaging is recommended for these lesions per consensus recommendations based on imaging criteria. ? Dictated By: Fantasma Terrazas Signed By: Fantasma Terrazas Signed Date/Time: 04/21/21 1754 Other Data 1700: bp 163/67 Discharge Plan Discharge Patient Disposition: Home Clinical Impression: Hypertensive urgency, Acute UTI (urinary tract infection) Abdominal pain Qualifiers: Abdominal location: right upper quadrant Qualified Code(s): R10.11 - Right upper quadrant pain Herpes zoster Qualifiers: Herpes zoster complications: without complications Qualified Code(s): B02.9 - Zoster without complications Condition: Stable Prescriptions: New hydrocodone-acetaminophen 5-325 mg tablet 1 tab PO Q6H PRN (Reason: pain) Qty: 15 0RF acyclovir 800 mg tablet 800 mg PO QID Qty: 28 0RF prednisone 20 mg tablet 20 mg PO DAILY Qty: 7 0RF Rx Instructions: Take each morning with food. lisinopril 20 mg tablet 20 mg PO DAILY Qty: 30 2RF Rx Instructions: instead of 5mg daily cephalexin 500 mg capsule 500 mg PO QID 7 Days Qty: 28 0RF Rx Instructions: for infection No Action simvastatin 40 mg tablet 40 mg PO DAILY 0RF lisinopril 5 mg tablet 5 mg PO QAM 0RF omeprazole 40 mg capsule,delayed release(DR/EC) 40 mg PO QAM 0RF albuterol sulfate [Ventolin HFA] 90 mcg/actuation HFA aerosol inhaler 2 puff INHALATION Q4H PRN (Reason: Shortness Of Breath) 0RF escitalopram oxalate 20 mg tablet 20 mg PO BEDTIME 0RF Medrol (Corwin) 4 mg tablets,dose pack See Rx Instructions .ROUTE .COMPLEX Qty: 21 0RF Rx Instructions: orally per package directions acetaminophen [Tylenol Extra Strength] 500 mg Tablet 1,000 mg PO Q4H PRN (Reason: Pain) 0RF Discharge Orders: Discharge ED (Routine); Ordered 04/21/21 Ordered By: Jeffrey Harley Referrals: Shari Erazo MD [Primary Care Provider] - 1-3 days (Follow-up with your family doctor early this week.) Discharge Diet: Advance as tolerated Discharge Activity: Increase activity as tolerated Patient Instructions: Shingles (ED), Chronic Hypertension (ED), Abdominal Pain (ED), DASH Eating Plan (ED), Opioid Safety Activity Restrictions/Additional Instructions: Start acyclovir, prednisone and increased dose of lisinopril tomorrow morning. Take prednisone with food. You will need to take a total of 20 mg lisinopril daily for your high blood pressure. Avoid added salt or caffeine. Return if symptoms worsen. CT scan of your abdomen showed nothing acute. Start cephalexin antibiotic tomorrow afternoon. Drink plenty of water. Coding Level of Care Code ED Typesetting Machine Operator/Tender for Gisselle Fwd Exam Comprehensive
[2021-04-21] MEDS: hyDRALAzine 20 mg/mL INJ 1 mL 10 MG IVP (15:54)
[2021-04-21] MEDS: acyclovir 400 mg Tablet 800 MG PO (15:55)
[2021-04-21 16:09] LABS: Basophils % 0.5 %; Hemoglobin 12.5 g/dL (11.5-15.3); Lymphocytes # 0.5 10^3/uL (0.8-4.8); Lymphocytes % 10.8 %; Mean Corpuscular HGB Conc 30.5 g/dL (30.0-36.0); Mean Corpuscular Hemoglobin 26.8 pg (28.0-34.0); Mean Corpuscular Volume 87.8 fl (81-99); Mean Platelet Volume 10.6 fL (7.4-10.4); Monocytes # 0.4 10^3/uL (0.2-0.9); Monocytes % 10.4 %; Neutrophils # 3.22 10^3/uL (1.8-7.7); Neutrophils % 77.6 %; Nucleated Red Blood Cells % 0 %; Platelet Count 208 10^3/cmm (130-400); Red Blood Count 4.67 10^6/uL (4.1-5.3); Red Cell Distribution Width 14.3 % (12.1-15.1); White Blood Count 4.2 10^3/uL (4.0-10.0)
[2021-04-21 16:52] LABS: Alanine Aminotransferase 7 U/L (0-33); Alkaline Phosphatase 84 IU/L (35-105); Blood Urea Nitrogen 20 mg/dL (8-23); Calcium 9.7 mg/dL (8.5-10.5); Carbon Dioxide 25 mmol/L (22-29); Chloride 100 mmol/L (98-107); Globulin 2.8 g/dL (1.3-4.6); Glucose 106 mg/dL (65-115); Lipase 25 U/L (13-60); Osmolality Calculated 285 mOsm/kg (285-295); Sodium 136 mmol/L (136-145); Total Bilirubin 0.4 mg/dL (0.15-1.2); Total Protein 6.8 g/dL (6.6-8.7)
--- NOTE | 2021-04-21 16:59 | CTR_ITS ---
PROCEDURE INFORMATION: Exam: CT Abdomen And Pelvis Without Contrast Exam date and time: 04/21/2021 4:59 PM Age: 85 years old Clinical indication: Abdominal pain; Localized; Right lower quadrant (rlq); Prior surgery; Surgery date: 6+ months; Surgery type: Hernia, hyst; Patient HX: C/O R flank/rlq pain; Additional info: Flank pain; Right, also look at appendix TECHNIQUE: Imaging protocol: Computed tomography of the abdomen and pelvis without contrast. Radiation optimization: All CT scans at this facility use at least one of these dose optimization techniques: automated exposure control; mA and/or kV adjustment per patient size (includes targeted exams where dose is matched to clinical indication); or iterative reconstruction. COMPARISON: CT abdomen pelvis w con* [id number] 08/12/2019 8:09 AM RADIATION DOSE METRICS: Total DLP (mGy-cm): 1935.19 FINDINGS: Lungs: Bronchiectasis in the right lower and middle lobes. Fibrosis in the right middle lobe. Mild tree-in-bud opacities in the right lower lobe. Liver: Normal. No mass. Gallbladder and bile ducts: Normal. No calcified stones. No ductal dilation. Pancreas: Normal. No ductal dilation. Spleen: Normal. No splenomegaly. Adrenal glands: Normal. No mass. Kidneys and ureters: Right renal cyst, Hounsfield units less than 20. No follow-up imaging is recommended. The kidneys are otherwise unremarkable. No calculus or hydronephrosis. Mild perinephric stranding is most likely chronic. Stomach and bowel: Large hiatal/gastric hernia. Mild diverticulosis of the sigmoid colon. No diverticulitis. The stomach is decompressed. The small bowel is unremarkable. No wall thickening or obstruction. Appendix: The appendix is not visualized, and may be surgically absent. No secondary signs of appendicitis. Intraperitoneal space: Unremarkable. No free air. No significant fluid collection. Vasculature: Arterial calcifications. No aneurysm. Lymph nodes: Unremarkable. No enlarged lymph nodes. Urinary bladder: Unremarkable as visualized. Reproductive: The uterus and ovaries are absent. Bones/joints: Degenerative changes of the spine and hips. No fracture. Soft tissues: Unremarkable. CT/CT kidney stone [id number] IMPRESSION: 1. No acute abnormality identified in the abdomen or pelvis. 2. Mild tree-in-bud opacities in the right lower lobe and bronchiectasis in the right lung base. This finding likely indicates chronic/recurrent endobronchial infection. Consider atypical etiologies such as mycobacterium avium complex. COMMENTS: Consistent with the [employer] [employer]'s Incidental Findings Committee white paper (J Am Britt Radiol 2018): Any incidental renal lesion less than 1 cm or classified as too small to characterize, or any incidental cystic renal lesion characterized as simple-appearing, is likely benign. No follow-up imaging is recommended for these lesions per consensus recommendations based on imaging criteria.
[2021-04-21 17:03] LABS: Anion Gap 14.7 (5-19); Aspartate Amino Transferase 13 U/L (0-32); Potassium 3.7 mmol/L (3.5-5.1)
[2021-04-21 17:07] LABS: Bilirubin Urine 1+ (Negative); Blood Urine 2+ (Negative); Glucose Urine UA Norm (Normal); Ketones Urine Negative (Negative); Leukocyte Esterase Urine Trace (Negative); Nitrate Urine Negative (Negative); Protein Urine 1+ (Negative); Urine Appearance Hazy (CLEAR); Urine Color Dark Yellow (Yellow); Urobilinogen Urine 8 mg/dL (Negative); pH Urine 5 (5-7)
[2021-04-21 17:08] LABS: Add Urine Culture? No; Bacteria Urine 1+ /hpf; Squamous Epithelial Cell Urine 15-25 /hpf (0-5)
[2021-04-21] MEDS: cefTRIAXone 1,000 MG in lidocaine 1% 2.1 ML 2.1 MG IM (17:53)
[2021-04-21] MEDS: lisinopril 10 mg Tablet PO (18:04)
== END 2021-04-21 18:17 | disposition home or self-care (01) ==
PROVIDERS: Emergency Provider Family Medicine; PCP Family Medicine
DX: N39.0 Urinary tract infection, site not specified (principal); I16.0 Hypertensive urgency; B02.9 Zoster without complications; J44.9 Chronic obstructive pulmonary disease, unspecified; I10 Essential (primary) hypertension; Z87.891 Personal history of nicotine dependence
CPT/HCPCS: 74176; 80053; 81001; 83690; 85025; 96372; 96374; 99283; J0360; J0696; J8499

== ENCOUNTER 2021-05-16 17:02 | Emergency (ER) | payer MEDICARE, MEDICAID, SELFPAY ==
[2021-05-16 17:44] VITALS: BP 126/82; PULSE 64; RESP 20; TEMP 36.4; O2SAT 98; BMI 37.5
--- NOTE | 2021-05-16 17:53 | XRR_ITS ---
PROCEDURE INFORMATION: Exam: XR Chest Exam date and time: 05/16/2021 6:13 PM Age: 85 years old Clinical indication: Shortness of breath; Additional info: SOB TECHNIQUE: Imaging protocol: XR of the chest. Views: 1 view. COMPARISON: CR XR chest 1V portable [id number] 02/12/2021 9:19 AM FINDINGS: Lungs: Probable emphysema. No consolidation. Pleural spaces: Small left pleural effusion. No pneumothorax. Heart/Mediastinum: Probable hiatal hernia. No cardiomegaly. Bones/joints: Unremarkable. Other findings: The patient is rotated to the left. XR/XR chest 1V portable [id number] IMPRESSION: 1. No acute pulmonary finding. 2. Small pleural effusion.
--- NOTE | 2021-05-16 21:47 | ED_ITS ---
HPI - Abdominal Pain General: Chief Complaint: Abdominal Pain Stated Complaint: Sharp abd pains COPD, difficulty breathing Time Seen by Provider: 05/16/21 21:40 Source: patient Mode of arrival: ambulatory Limitations: no limitations History of Present Illness: 85-year-old female who currently has shingles right side of her abdomen. States she been having pain over that site states been having a sharp burning pain exactly where the rashes states she only been taking Tylenol for pain and it does not help states pain is currently is a 5 out of 10 much worse with any palpation or when her close brushes against it. No vomiting no diarrhea no fever no pain elsewhere Associated Symptoms: Denies chills, dysuria and fever(s) Review of Systems Const: Denies: fever(s), chills, body aches or change in appetite Eyes: Denies: blurry vision or eye discomfort ENMT: Denies: throat pain or dental pain Card: Denies: chest pain Resp: Denies: dyspnea GI: Reports: abdominal pain : Denies: dysuria Musc: Denies: neck pain or back pain Skin/Breast: Reports: rash Neuro: Denies: headache(s) Psych: Denies: depression Vinicio/Lymph: Denies: easy bruising All/Imm: Denies: urticaria PFSH ED PFSH: Medical History Chronic hip pain Chronic obstructive pulmonary disease, unspecified Hypertension Long-term current use of opiate analgesic Lumbar spondylosis Pain management contract signed SI joint arthritis Surgical History Hx of hysterectomy Hx of total knee replacement LEFT Hx of tubal ligation Family History Mother Hypertension Sister Cancer BREAST CANCER Brother Cancer Seizure disorder Other Diabetes Social History Smoking and tobacco status: former smoker Alcohol intake: never Caregiver/support person: Yes Lives independently: Yes Household members: children History of recent travel: No Physical Exam Const: COMMON NORMALS: no acute distress, patient oriented x3 and healthy appearing HENMT: COMMON NORMALS: normocephalic and atraumatic HEAD & SCALP: normocephalic and atraumatic Eye: COMMON NORMALS: Equal, round and reactive pupils present and EOMs intact bilaterally PUPIL: Yes Equal, round and reactive pupils present Neck/C-Spine: COMMON NORMALS: full ROM and supple Chest: COMMONS NORMALS: normal inspection of the chest and normal palpation of entire chest wall Resp: COMMON NORMALS: normal respiratory effort, No retractions, No use of accessory muscles and clear to auscultation bilaterally AUSCULTATION: clear to auscultation bilaterally Cardio: COMMON NORMALS: regular rate, regular rhythm and No murmurs present (Cardio) RATE: regular rate RHYTHM: regular rhythm GI: COMMON NORMALS: Soft to palpation and no masses PALPATION: Yes Soft to palpation OTHER: Shingles noted to right side of the abdomen tenderness over her shingles Extremity: COMMON NORMALS: normal to inspection and full ROM Neuro: COMMON NORMALS: patient oriented x3, moves all extremities and no focal motor deficits Psych: COMMON NORMALS: mental status grossly normal, Normal thought process present and cooperative THOUGHT PROCESS: Normal thought process present Skin: COMMON NORMALS: no rashes or lesions noted and no wounds GENERAL SKIN EXAM: no rashes or lesions noted Course Vital Signs: Vital signs: Vital Signs Temperature 97.6 F 05/16/21 17:44 Pulse Rate 64 05/16/21 17:44 Respiratory Rate 20 H 05/16/21 17:44 Blood Pressure 126/82 05/16/21 17:44 Pulse Oximetry 98 05/16/21 17:44 MDM - Abdominal Pain Medical Decision Making Patient presents with shingles likely causing her pain all of her pain on exam is over her shingles she has no other tenderness on her abdomen she had a recent CT scan last month that was normal. Not believe she needs any imaging or lab studies at this time as her pain is due to her shingles. She is only been taking Tylenol we will start her on hydrocodone she is to follow-up with PCP and return if worsening Lab Data Labs/Radiology: Radiology Impressions Chest X-Ray 05/16/21 17:53 IMPRESSION: 1. No acute pulmonary finding. 2. Small pleural effusion. Discharge Plan Discharge Patient Disposition: Home Clinical Impression: Shingles Qualifiers: Herpes zoster complications: without complications Qualified Code(s): B02.9 - Zoster without complications Condition: Stable Prescriptions: New hydrocodone-acetaminophen 5-325 mg tablet 1 tab PO Q6H PRN (Reason: pain) Qty: 14 0RF No Action simvastatin 40 mg tablet 40 mg PO DAILY 0RF lisinopril 5 mg tablet 5 mg PO QAM 0RF omeprazole 40 mg capsule,delayed release(DR/EC) 40 mg PO QAM 0RF albuterol sulfate [Ventolin HFA] 90 mcg/actuation HFA aerosol inhaler 2 puff INHALATION Q4H PRN (Reason: Shortness Of Breath) 0RF escitalopram oxalate 20 mg tablet 20 mg PO BEDTIME 0RF Medrol (Corwin) 4 mg tablets,dose pack See Rx Instructions .ROUTE .COMPLEX Qty: 21 0RF Rx Instructions: orally per package directions hydrocodone-acetaminophen 5-325 mg tablet 1 tab PO Q6H PRN (Reason: pain) Qty: 15 0RF acyclovir 800 mg tablet 800 mg PO QID Qty: 28 0RF prednisone 20 mg tablet 20 mg PO DAILY Qty: 7 0RF Rx Instructions: Take each morning with food. lisinopril 20 mg tablet 20 mg PO DAILY Qty: 30 2RF Rx Instructions: instead of 5mg daily acetaminophen [Tylenol Extra Strength] 500 mg Tablet 1,000 mg PO Q4H PRN (Reason: Pain) 0RF Discharge Orders: Discharge ED (Routine); Ordered 05/16/21 Ordered By: Lolis Desai Referrals: Shari Erazo MD [Primary Care Provider] - Discharge Diet: Advance as tolerated Discharge Activity: Resume usual activity Patient Instructions: Lori (ED) Coding Level of Care Code ED Analytics Leader for Gisselle Ferrari
[2021-05-16 22:00] VITALS: BP 123/85; PULSE 70; RESP 18; O2SAT 96
[2021-05-16] MEDS: HYDROcodone-acetaminophen 5-325 mg Tablet 1 TAB PO (22:18)
[2021-05-16 22:25] VITALS: BP 123/78; PULSE 68; RESP 18; O2SAT 98
== END 2021-05-16 22:20 | disposition home or self-care (01) ==
PROVIDERS: Emergency Provider Emergency Medicine; PCP Family Medicine
DX: B02.9 Zoster without complications (principal); J44.9 Chronic obstructive pulmonary disease, unspecified; I10 Essential (primary) hypertension
CPT/HCPCS: 71045; 99283